=== PATIENT | female | born 1990 | race Caucasian/White ===

== ENCOUNTER → 2018-08-29 09:27 | Outpatient (CLI) | payer OTHER, MEDICAID, SELFPAY | PROVIDERS: Visit Provider Physician Assistant | DX: N39.0 Urinary tract infection, site not specified (principal) | CPT/HCPCS: 87086 ==

== ENCOUNTER → 2018-10-04 10:02 | Outpatient (CLI) | payer OTHER, MEDICAID, SELFPAY | PROVIDERS: Visit Provider Physician Assistant | DX: J02.9 Acute pharyngitis, unspecified (principal) | CPT/HCPCS: 87070 ==

== ENCOUNTER → 2020-03-04 17:15 | Outpatient (CLI) | payer OTHER, MEDICAID, SELFPAY | PROVIDERS: Visit Provider Nurse Practitioner | DX: R30.0 Dysuria (principal) | CPT/HCPCS: 87077; 87086 ==

== ENCOUNTER → 2020-03-10 10:43 | Outpatient (CLI) | payer OTHER, MEDICAID, SELFPAY | PROVIDERS: Visit Provider Nurse Practitioner | DX: R30.0 Dysuria (principal); R10.2 Pelvic and perineal pain | CPT/HCPCS: 87086; 87210 ==

== ENCOUNTER → 2020-03-10 11:31 | Outpatient (CLI) | payer OTHER, MEDICAID, SELFPAY ==
[2020-03-10 14:36] LABS: Urine N gonorrhoeae NOT DETECTED
[2020-03-10 14:39] LABS: Urine Chlamydia NOT DETECTED
[2020-03-10 18:14] LABS: Hepatitis B Surface Antigen NEGATIVE s/c (NEGATIVE)
[2020-03-10 18:30] LABS: HIV 1 & 2 Ab/Ag 4th Gen Combo NEGATIVE (NEGATIVE); Hep C Virus Ab w/Reflex Quant NEGATIVE s/c (NEGATIVE)
[2020-03-11 05:56] LABS: HSV 2 IGG AB < 0.91 index (0.00-0.90)
[2020-03-11 08:09] LABS: RPR Screen Non Reactive (Non Reactive)
== END ==
PROVIDERS: Referring Provider Nurse Practitioner; Visit Provider Nurse Practitioner
DX: R10.2 Pelvic and perineal pain (principal); R30.0 Dysuria
CPT/HCPCS: 36415; 86592; 86695; 86696; 86803; 87077; 87086; 87147; 87210; 87340; 87389; 87491; 87591